=== PATIENT | male | born 1955 | race Caucasian/White ===

== ENCOUNTER 2017-03-31 07:58 | Observation (INO) ==
[2017-03-31] MEDS ORDERED: *HR* HYDROmorphone (PF) 1 MG/ML SYRINGE IVP ONE ×3 (08:11→09:20)
[2017-03-31] MEDS ORDERED: Ondansetron 4 MG/2 ML VIAL IVP ONE ×2 (08:11→08:50)
[2017-03-31] MEDS ORDERED: 0.9 % Sodium Chloride 1,000 ML IVC ONE ×2 (08:14→08:42)
--- NOTE | 2017-03-31 08:18 | Emergency Department Note ---
Disposition Clinical Impression: Abdominal pain, Lactic acidosis Disposition: Admitted As Inpatient Condition: Good General Adult HPI - General Chief complaint: ED Abdominal Pain Stated complaint: ABD PAIN Time Seen by Provider: 03/31/17 08:05 Source: patient, family Limitations: no limitations Nursing Notes Reviewed: Yes Vital Signs Reviewed: Yes - History of Present Illness Pain Scale: 9 - Related Data Home Medications Medication Instructions Recorded Confirmed Multivit-Min/FA/Lycopen/Lutein 1 tab PO DAILY 03/31/17 03/31/17 [Centrum Silver Men Tablet] Allergies Allergy/AdvReac Type Severity Reaction Status Date / Time No Known Allergies Allergy Verified 03/31/17 08:06 Past Medical History - Past Medical History Medical history: Reports: no medical history Psychiatric history: Reports: no psych history - Social History Smoking Status: Never smoker Smokeless Tobacco Status: No Drug use: Reports: none Physical Exam - General Limitations: no limitations General appearance: alert, other Course Vital Signs Temperature 97.5 F L 03/31/17 08:00 Pulse Rate 85 03/31/17 08:00 Respiratory Rate 20 03/31/17 08:00 Blood Pressure 0/0 03/31/17 08:00 O2 Sat by Pulse Oximetry 95 03/31/17 08:00 Temperature 98.1 F 03/31/17 14:59 Pulse Rate 68 03/31/17 14:59 Respiratory Rate 14 03/31/17 14:59 Blood Pressure 135/85 03/31/17 14:59 O2 Sat by Pulse Oximetry 94 03/31/17 14:59 Oxygen Delivery Oxygen Delivery Nasal Cannula Medical Decision Making - [facility] Narrative Medical decision making narrative: I examined this patient and my medical decision-making was reviewed with the Resident Physician. I agree with the documented findings, disposition and treatment plan as described except to the extent set forth below. Patient seen and evaluated by Dr. Ayala and myself, I agree with his evaluation and management plan, supervise care the patient's stay. Patient's had abdominal pain this been going on for about 2 hours some vomiting and diarrhea. He points to epigastric region but also right lower quadrant appears to be somewhat jaundiced. No chronic medical problems with his abdomen in the past. We will see if we can make him more comfortable check lab work and scan his abdomen with CT. He is in agreement with this plan. No testicular tenderness. Abdomen/Pelvis CT 03/31/17 08:15 IMPRESSION: 1. Mild infiltration of the mesentery with small nodes. 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 Treated adenopathy could appear similar. 2. Otherwise no acute findings within the abdomen or pelvis. Colonic diverticulosis with no acute features. No CT evidence of appendicitis or obstructive uropathy. D/ / Angel Cuellar MD / Angel Cuellar MD Interpreting Provider: Angel Cuellar MD 0900 hrs.: Patient's lactate is elevated, repeat at 4 hours after giving fluids here. His vital signs are stable compared to the first set. We spoke with surgery and Dr. El is coming down to see the patient. 9:30 hours: Dr. Strange has seen the patient in the emergency department he would like a repeat CT with IV contrast. Patient's feeling better after getting 2.4 mg of Dilaudid and nausea medication. Patient's agreement this plan. Abdomen/Pelvis CT 03/31/17 09:05 IMPRESSION: 1. No CT evidence of mesenteric ischemia. The mesenteric arterial and venous circulation are patent. No significant inflammatory changes within the small or large bowel. 2. Redemonstration of mild infiltration of the mesenteric fat with small nodes. Colonic diverticulosis with no acute features. D/ : / 03/31/2017 10:07:41 Angel Cuellar MD / [facility] Interpreting Provider: Angel Cuellar MD 1030 hrs. discussed findings with surgery. Admit to medicine, and surgery consult. Patient's agreement with plan. - Lab Data Result diagrams: 03/31/17 08:16 03/31/17 08:16 Lab Results 03/31/17 03/31/17 03/31/17 Range/Units 08:16 08:16 08:16 WBC 9.3 (4.3-11.1) K/mcL RBC 5.52 H (4.19-5.50) M/mcL Hgb 16.1 (12.9-16.9) g/dL Hct 46.4 (37.5-50.1) % MCV 84.1 (83.0-100.0) fL MCH 29.2 (28.0-33.3) pg MCHC 34.7 (31.6-35.5) g/dL RDW 12.4 (11.5-14.5) % Plt Count 175 (140-400) K/mcL MPV 9.0 L (9.4-12.4) fL Immature Gran % 0.5 (0-4) % Seg Neutrophils % 76.3 % Lymphocytes % 17.0 % Monocytes % 4.3 % Eosinophils % 1.6 % Basophils % 0.3 % Neutrophils # 7.1 (1.6-8.9) K/mcL Lymphocytes # 1.6 (0.6-4.6) K/mcL Monocytes # 0.4 (0.0-1.3) K/mcL Eosinophils # 0.2 (0.0-0.6) K/mcL Basophils # 0.0 (0.0-0.2) K/mcL Sodium 142 (136-145) mEq/L Potassium 3.5 (3.5-4.5) mEq/L Chloride 105 (98-109) mEq/L Carbon Dioxide 26 (19-29) mEq/L BUN 10 (8-26) mg/dL Creatinine 1.07 (0.72-1.25) mg/dL Est GFR ( Amer) > 60 (> 60) Est GFR (Non-Af Amer) > 60 (> 60) BUN/Creatinine Ratio 9 (6-26) Glucose 132 H (70-99) mg/dL Calculated Osmolality 295 (280-300) Lactic Acid 4.0 H* (0.5-2.2) mmol/L Calcium 9.6 (8.6-10.8) mg/dL Total Bilirubin 0.4 (0.2-1.2) mg/dL Direct Bilirubin 0.2 (0.0-0.5) mg/dL Indirect Bilirubin 0.2 (0.0-1.2) mg/dL AST 36 H (5-34) Units/L ALT 60 H (0-55) Units/L Alkaline Phosphatase 90 (38-126) Units/L Troponin I (0-0.03) ng/mL Serum Total Protein 7.9 (6.0-8.3) g/dL Albumin 4.4 (3.5-5.0) g/dL Globulin 3.5 (2.4-3.5) g/dL Albumin/Globulin Ratio 1.3 (1.1-2.2) Lipase 43 (8-78) Units/L Urine Color (Yellow) Urine Clarity (Clear) Urine pH (5.0-8.0) pH Units Ur Specific [place] (1.010-1.025) Urine Protein (Neg-Trace) mg/dL Urine Glucose (UA) (Normal) mg/dL Urine Ketones (Negative) mg/dL Urine Blood (Negative) Urine Nitrite (Negative) Urine Bilirubin (Negative) Urine Urobilinogen (Normal) mg/dL Ur Leukocyte Esterase (Negative) Urine Microscopic RBC (0-3) per hpf Urine Microscopic WBC (0-3) per hpf Ur Squamous Epith Cells (None-Few) per lpf Urine Bacteria (None-Few) per hpf Hyaline Casts (None-Few) per lpf Ur Culture Indicated? (NO) Urine Opiates Screen (Nsfwmo=179) ng/mL Ur Barbiturates Screen (Sbtuwf=450) ng/mL Ur Phencyclidine Scrn (Cutoff=25) ng/mL Ur Amphetamines Screen (Mojsqc=6147) ng/mL U Benzodiazepines Scrn (Senrjg=640) ng/mL Urine Cocaine Screen (Cutoff= 300) ng/mL U Marijuana (THC) Screen (Cutoff = 50) ng/mL 03/31/17 03/31/17 03/31/17 Range/Units 08:16 08:45 08:45 WBC (4.3-11.1) K/mcL RBC (4.19-5.50) M/mcL Hgb (12.9-16.9) g/dL Hct (37.5-50.1) % MCV (83.0-100.0) fL MCH (28.0-33.3) pg MCHC (31.6-35.5) g/dL RDW (11.5-14.5) % Plt Count (140-400) K/mcL MPV (9.4-12.4) fL Immature Gran % (0-4) % Seg Neutrophils % % Lymphocytes % % Monocytes % % Eosinophils % % Basophils % % Neutrophils # (1.6-8.9) K/mcL Lymphocytes # (0.6-4.6) K/mcL Monocytes # (0.0-1.3) K/mcL Eosinophils # (0.0-0.6) K/mcL Basophils # (0.0-0.2) K/mcL Sodium (136-145) mEq/L Potassium (3.5-4.5) mEq/L Chloride (98-109) mEq/L Carbon Dioxide (19-29) mEq/L BUN (8-26) mg/dL Creatinine (0.72-1.25) mg/dL Est GFR ( Amer) (> 60) Est GFR (Non-Af Amer) (> 60) BUN/Creatinine Ratio (6-26) Glucose (70-99) mg/dL Calculated Osmolality (280-300) Lactic Acid (0.5-2.2) mmol/L Calcium (8.6-10.8) mg/dL Total Bilirubin (0.2-1.2) mg/dL Direct Bilirubin (0.0-0.5) mg/dL Indirect Bilirubin (0.0-1.2) mg/dL AST (5-34) Units/L ALT (0-55) Units/L Alkaline Phosphatase (38-126) Units/L Troponin I 0.01 (0-0.03) ng/mL Serum Total Protein (6.0-8.3) g/dL Albumin (3.5-5.0) g/dL Globulin (2.4-3.5) g/dL Albumin/Globulin Ratio (1.1-2.2) Lipase (8-78) Units/L Urine Color Yellow (Yellow) Urine Clarity Cloudy A (Clear) Urine pH 8.0 (5.0-8.0) pH Units Ur Specific [place] 1.017 (1.010-1.025) Urine Protein Negative (Neg-Trace) mg/dL Urine Glucose (UA) Normal (Normal) mg/dL Urine Ketones Negative (Negative) mg/dL Urine Blood Negative (Negative) Urine Nitrite Negative (Negative) Urine Bilirubin Negative (Negative) Urine Urobilinogen Normal (Normal) mg/dL Ur Leukocyte Esterase Negative (Negative) Urine Microscopic RBC 0-3 (0-3) per hpf Urine Microscopic WBC 0-3 (0-3) per hpf Ur Squamous Epith Cells Many H (None-Few) per lpf Urine Bacteria None Seen (None-Few) per hpf Hyaline Casts None Seen (None-Few) per lpf Ur Culture Indicated? NO (NO) Urine Opiates Screen Negative (Spyxmn=466) ng/mL Ur Barbiturates Screen Negative (Vafivz=434) ng/mL Ur Phencyclidine Scrn Negative (Cutoff=25) ng/mL Ur Amphetamines Screen Negative (Tpsfod=4207) ng/mL U Benzodiazepines Scrn Negative (Denxzf=930) ng/mL Urine Cocaine Screen Negative (Cutoff= 300) ng/mL U Marijuana (THC) Screen Positive H (Cutoff = 50) ng/mL
[2017-03-31 08:26] LABS: Basophils % 0.3 %; Eosinophils # 0.2 K/mcL (0.0-0.6); Eosinophils % 1.6 %; Hematocrit 46.4 % (37.5-50.1); Hemoglobin 16.1 g/dL (12.9-16.9); Immature Granulocytes % 0.5 % (0-4); Lymphocytes # 1.6 K/mcL (0.6-4.6); Mean Corpuscular HGB Conc 34.7 g/dL (31.6-35.5); Mean Corpuscular Hemoglobin 29.2 pg (28.0-33.3); Mean Corpuscular Volume 84.1 fL (83.0-100.0); Monocytes # 0.4 K/mcL (0.0-1.3); Monocytes % 4.3 %; Neutrophils # 7.1 K/mcL (1.6-8.9); Platelet Count 175 K/mcL (140-400); Red Blood Count 5.52 M/mcL (4.19-5.50); Red Cell Distribution Width 12.4 % (11.5-14.5); Segmented Neutrophils % 76.3 %
[2017-03-31 08:41] LABS: Alanine Aminotransferase 60 Units/L (0-55); Albumin 4.4 g/dL (3.5-5.0); Albumin/Globulin Ratio 1.3 (1.1-2.2); Alkaline Phosphatase 90 Units/L (38-126); Aspartate Amino Transferase 36 Units/L (5-34); BUN/Creatinine Ratio 9 (6-26); Bilirubin,Direct 0.2 mg/dL (0.0-0.5); Bilirubin,Indirect 0.2 mg/dL (0.0-1.2); Bilirubin,Total 0.4 mg/dL (0.2-1.2); Blood Urea Nitrogen 10 mg/dL (8-26); Calcium 9.6 mg/dL (8.6-10.8); Carbon Dioxide 26 mEq/L (19-29); Chloride 105 mEq/L (98-109); Globulin 3.5 g/dL (2.4-3.5); Glucose 132 mg/dL (70-99); Lipase 43 Units/L (8-78); Osmolality,Calculated 295 (280-300); Potassium 3.5 mEq/L (3.5-4.5); Sodium 142 mEq/L (136-145); Total Protein 7.9 g/dL (6.0-8.3); eGFR For African Americans > 60 (> 60); eGFR For Non-African Americans > 60 (> 60)
[2017-03-31 08:54] LABS: Bilirubin,Urine Negative (Negative); Blood,Urine Negative (Negative); Clarity,Urine Cloudy (Clear); Color,Urine Yellow (Yellow); Glucose,Urine (UA) Normal (Normal); Ketones,Urine Negative (Negative); Leukocyte Esterase,Urine Negative (Negative); Nitrite,Urine Negative (Negative); Protein,Urine Negative (Neg-Trace); Specific Gravity,Urine 1.017 (1.010-1.025); Urobilinogen,Urine Normal (Normal)
[2017-03-31 08:56] LABS: Bacteria,Urine None Seen per hpf (None-Few); Hyaline Casts,Urine None Seen per lpf (None-Few); RBC,Urine 0-3 per hpf (0-3); Squamous Epithelial Cell,Urine Many per lpf (None-Few); WBC,Urine 0-3 per hpf (0-3)
[2017-03-31 08:59] LABS: Amphetamine Screen,Urine Negative ng/mL (Cutoff=1000); Barbiturate Screen,Urine Negative ng/mL (Cutoff=200); Benzodiazepines Screen,Urine Negative ng/mL (Cutoff=200); Cannabinoid Screen,Urine Positive ng/mL (Cutoff = 50); Cocaine Screen,Urine Negative ng/mL (Cutoff= 300); Opiate Screen,Urine Negative ng/mL (Cutoff=300); Phencyclidine Screen,Urine Negative ng/mL (Cutoff=25)
--- NOTE | 2017-03-31 09:08 | Emergency Department Note ---
Disposition Clinical Impression: Abdominal pain, Lactic acidosis Disposition: Admitted As Inpatient Condition: Good Referrals: NONE,PCP [Primary Care Provider] - Forms: ED Satisfaction Letter, Work/School Release Time of Disposition: 10:33 Abdominal Pain HPI - General Chief Complaint: ED Abdominal Pain Stated Complaint: ABD PAIN Time Seen by Provider: 03/31/17 08:05 Source: patient, family Mode of arrival: ambulatory Limitations: no limitations Nursing Notes Reviewed: Yes Vital Signs Reviewed: Yes - History of Present Illness HPI Narrative: Patient presents to the ED with the chief complaint of abdominal pain. reports he was awoken from sleep 2 hours prior to arrival with severe abdominal pain. Located periumbilically unable to describe the character but states it hurts all over. Had one episode of watery diarrhea and as well as vomiting. Patient is diaphoretic and most of the history is given by his . States his last meal was at 10 PM yesterday. Has no known medical problems, takes no medication daily. No known fever, rash, chest pain or shortness of breath. Pain Scale: 10 - Related Data Home Medications Medication Instructions Recorded Confirmed Multivit-Min/FA/Lycopen/Lutein 1 tab PO DAILY 03/31/17 03/31/17 [Centrum Silver Men Tablet] Allergies Allergy/AdvReac Type Severity Reaction Status Date / Time No Known Allergies Allergy Verified 03/31/17 08:06 All systems ED: reviewed and negative except as stated. Constitutional: Denies: fever Cardiovascular: Denies: chest pain Respiratory: Denies: dyspnea Gastrointestinal: Reports: abdominal pain, nausea, vomiting, diarrhea. Denies: hematemesis, melena, hematochezia Genitourinary: Denies: dysuria Abdominal Pain PMH - Past Medical History Medical history: Reports: no medical history Male Surgical History: Reports: no surgical history Psychiatric history: Reports: no psych history - Social History Smoking status: Never smoker Drug use: Reports: none Physical Exam - General Limitations: no limitations General appearance: alert, in distress, other - Respiratory Respiratory exam: Present: normal lung sounds bilaterally - Cardiovascular Cardiovascular exam: Present: regular rate, normal rhythm, normal heart sounds - Abdominal Exam Abdominal exam: Present: soft, tenderness, other (pain out of proportion to exam ). Absent: distention Abdominal tenderness: Present: diffuse, mild - Extremities Exam Extremities exam: Present: normal inspection, full ROM. Absent: tenderness, pedal edema - Neurological Exam Neurological exam: Present: alert, oriented X3 - Psychiatric Psychiatric exam: Present: anxious - Skin Skin exam: Present: warm, intact, diaphoresis Course Course Narrative: Patient presenting with acute onset of abdominal pain, and diaphoretic, seemed to have pain out of proportion to exam. Could be nephrolithiasis, although no previous history. We will send down for a noncontrasted CT while labs are pending. Likely surgical consult and admission. - Reevaluation(s) Reevaluation #1: Patient feeling better. Repeat CT did not show any concern over mesenteric ischemia. Patient will be admitted to the hospitalist service with surgical consult. Time: 10:32 - Consultations Consultation #1: Spoke with the on-call surgeon, Dr. El. States he will be down to evaluate the patient but did recommend repeating his abdominal CT scan with IV contrast to further evaluate his vasculature. Lactate is elevated at 4. We will repeat after fluid resuscitation and pain medication. Patient is still quite uncomfortable. Time: 09:06 Vital Signs Temperature 97.5 F L 03/31/17 08:00 Pulse Rate 85 03/31/17 08:00 Respiratory Rate 20 03/31/17 08:00 Blood Pressure 0/0 03/31/17 08:00 O2 Sat by Pulse Oximetry 95 03/31/17 08:00 Temperature 97.8 F 03/31/17 09:30 Pulse Rate 62 03/31/17 09:30 Respiratory Rate 16 03/31/17 09:30 Blood Pressure 151/94 03/31/17 09:30 O2 Sat by Pulse Oximetry 98 03/31/17 09:30 Oxygen Delivery Oxygen Delivery Room Air Abdominal Pain - Medical Records Medical records reviewed: Yes I reviewed the patient's medical records. - Lab Data Lab results reviewed: Yes I reviewed the patient's lab results. Result diagrams: 03/31/17 08:16 03/31/17 08:16 Lab Results 03/31/17 03/31/17 03/31/17 Range/Units 08:16 08:16 08:16 WBC 9.3 (4.3-11.1) K/mcL RBC 5.52 H (4.19-5.50) M/mcL Hgb 16.1 (12.9-16.9) g/dL Hct 46.4 (37.5-50.1) % MCV 84.1 (83.0-100.0) fL MCH 29.2 (28.0-33.3) pg MCHC 34.7 (31.6-35.5) g/dL RDW 12.4 (11.5-14.5) % Plt Count 175 (140-400) K/mcL MPV 9.0 L (9.4-12.4) fL Immature Gran % 0.5 (0-4) % Seg Neutrophils % 76.3 % Lymphocytes % 17.0 % Monocytes % 4.3 % Eosinophils % 1.6 % Basophils % 0.3 % Neutrophils # 7.1 (1.6-8.9) K/mcL Lymphocytes # 1.6 (0.6-4.6) K/mcL Monocytes # 0.4 (0.0-1.3) K/mcL Eosinophils # 0.2 (0.0-0.6) K/mcL Basophils # 0.0 (0.0-0.2) K/mcL Sodium 142 (136-145) mEq/L Potassium 3.5 (3.5-4.5) mEq/L Chloride 105 (98-109) mEq/L Carbon Dioxide 26 (19-29) mEq/L BUN 10 (8-26) mg/dL Creatinine 1.07 (0.72-1.25) mg/dL Est GFR ( Amer) > 60 (> 60) Est GFR (Non-Af Amer) > 60 (> 60) BUN/Creatinine Ratio 9 (6-26) Glucose 132 H (70-99) mg/dL Calculated Osmolality 295 (280-300) Lactic Acid 4.0 H* (0.5-2.2) mmol/L Calcium 9.6 (8.6-10.8) mg/dL Total Bilirubin 0.4 (0.2-1.2) mg/dL Direct Bilirubin 0.2 (0.0-0.5) mg/dL Indirect Bilirubin 0.2 (0.0-1.2) mg/dL AST 36 H (5-34) Units/L ALT 60 H (0-55) Units/L Alkaline Phosphatase 90 (38-126) Units/L Troponin I (0-0.03) ng/mL Serum Total Protein 7.9 (6.0-8.3) g/dL Albumin 4.4 (3.5-5.0) g/dL Globulin 3.5 (2.4-3.5) g/dL Albumin/Globulin Ratio 1.3 (1.1-2.2) Lipase 43 (8-78) Units/L Urine Color (Yellow) Urine Clarity (Clear) Urine pH (5.0-8.0) pH Units Ur Specific [place] (1.010-1.025) Urine Protein (Neg-Trace) mg/dL Urine Glucose (UA) (Normal) mg/dL Urine Ketones (Negative) mg/dL Urine Blood (Negative) Urine Nitrite (Negative) Urine Bilirubin (Negative) Urine Urobilinogen (Normal) mg/dL Ur Leukocyte Esterase (Negative) Urine Microscopic RBC (0-3) per hpf Urine Microscopic WBC (0-3) per hpf Ur Squamous Epith Cells (None-Few) per lpf Urine Bacteria (None-Few) per hpf Hyaline Casts (None-Few) per lpf Ur Culture Indicated? (NO) Urine Opiates Screen (Owkawh=177) ng/mL Ur Barbiturates Screen (Ryggqa=206) ng/mL Ur Phencyclidine Scrn (Cutoff=25) ng/mL Ur Amphetamines Screen (Hnysdj=3265) ng/mL U Benzodiazepines Scrn (Wiocdu=651) ng/mL Urine Cocaine Screen (Cutoff= 300) ng/mL U Marijuana (THC) Screen (Cutoff = 50) ng/mL 03/31/17 03/31/17 03/31/17 Range/Units 08:16 08:45 08:45 WBC (4.3-11.1) K/mcL RBC (4.19-5.50) M/mcL Hgb (12.9-16.9) g/dL Hct (37.5-50.1) % MCV (83.0-100.0) fL MCH (28.0-33.3) pg MCHC (31.6-35.5) g/dL RDW (11.5-14.5) % Plt Count (140-400) K/mcL MPV (9.4-12.4) fL Immature Gran % (0-4) % Seg Neutrophils % % Lymphocytes % % Monocytes % % Eosinophils % % Basophils % % Neutrophils # (1.6-8.9) K/mcL Lymphocytes # (0.6-4.6) K/mcL Monocytes # (0.0-1.3) K/mcL Eosinophils # (0.0-0.6) K/mcL Basophils # (0.0-0.2) K/mcL Sodium (136-145) mEq/L Potassium (3.5-4.5) mEq/L Chloride (98-109) mEq/L Carbon Dioxide (19-29) mEq/L BUN (8-26) mg/dL Creatinine (0.72-1.25) mg/dL Est GFR ( Amer) (> 60) Est GFR (Non-Af Amer) (> 60) BUN/Creatinine Ratio (6-26) Glucose (70-99) mg/dL Calculated Osmolality (280-300) Lactic Acid (0.5-2.2) mmol/L Calcium (8.6-10.8) mg/dL Total Bilirubin (0.2-1.2) mg/dL Direct Bilirubin (0.0-0.5) mg/dL Indirect Bilirubin (0.0-1.2) mg/dL AST (5-34) Units/L ALT (0-55) Units/L Alkaline Phosphatase (38-126) Units/L Troponin I 0.01 (0-0.03) ng/mL Serum Total Protein (6.0-8.3) g/dL Albumin (3.5-5.0) g/dL Globulin (2.4-3.5) g/dL Albumin/Globulin Ratio (1.1-2.2) Lipase (8-78) Units/L Urine Color Yellow (Yellow) Urine Clarity Cloudy A (Clear) Urine pH 8.0 (5.0-8.0) pH Units Ur Specific [place] 1.017 (1.010-1.025) Urine Protein Negative (Neg-Trace) mg/dL Urine Glucose (UA) Normal (Normal) mg/dL Urine Ketones Negative (Negative) mg/dL Urine Blood Negative (Negative) Urine Nitrite Negative (Negative) Urine Bilirubin Negative (Negative) Urine Urobilinogen Normal (Normal) mg/dL Ur Leukocyte Esterase Negative (Negative) Urine Microscopic RBC 0-3 (0-3) per hpf Urine Microscopic WBC 0-3 (0-3) per hpf Ur Squamous Epith Cells Many H (None-Few) per lpf Urine Bacteria None Seen (None-Few) per hpf Hyaline Casts None Seen (None-Few) per lpf Ur Culture Indicated? NO (NO) Urine Opiates Screen Negative (Jwzikl=453) ng/mL Ur Barbiturates Screen Negative (Svkqmh=321) ng/mL Ur Phencyclidine Scrn Negative (Cutoff=25) ng/mL Ur Amphetamines Screen Negative (Sttwki=2289) ng/mL U Benzodiazepines Scrn Negative (Tfrssr=251) ng/mL Urine Cocaine Screen Negative (Cutoff= 300) ng/mL U Marijuana (THC) Screen Positive H (Cutoff = 50) ng/mL - Radiology Data Radiology results reviewed: Yes I reviewed the patient's radiology results. Abdomen/Pelvis CT 03/31/17 08:15 IMPRESSION: 1. Mild infiltration of the mesentery with small nodes. 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 Treated adenopathy could appear similar. 2. Otherwise no acute findings within the abdomen or pelvis. Colonic diverticulosis with no acute features. No CT evidence of appendicitis or obstructive uropathy. D/ / 03/31/2017 09:13:38 Angel Cuellar MD / [facility] Interpreting Provider: Angel Cuellar MD - EKG Data EKG attestation: Yes I reviewed and interpreted this EKG. EKG results narrative: Sinus rhythm with sinus arrhythmia, rate 65, AR interval 186, QRS 93, QTc 423, normal axis, no acute ischemic changes.
[2017-03-31] MEDS ORDERED: *HR* Promethazine 25 MG/ML VIAL IVP ONE (09:25)
[2017-03-31] MEDS ORDERED: Naloxone 0.4 MG/ML INJ IVP PRN (10:59)
--- NOTE | 2017-03-31 11:09 | General Surgery Consult Note ---
Date of Encounter: 03/31/17 Time of Encounter: 11:00 Assessment and Plan (1) Abdominal pain Current Visit: Yes Status: Acute The patient's abdominal pain initially was 10 out of 10 and is now 0 out of 10 he has mild abnormality on CAT scan and a mild lactic acidosis. White blood cell count is normal. Since the pain is completely gone at this point I think it is reasonable to observe him over time clinically. We will follow along closely. Qualifiers: Abdominal location: generalized Qualified Code(s): R10.84 - Generalized abdominal pain History of Present Illness Consult date: 03/31/17 Reason for consult: abdominal pain History of present illness: The patient presented today with severe 10 out of 10 abdominal pain. He stated the pain was below the umbilicus and central in the abdomen. She had nausea and vomiting. He presented to the emergency room and underwent evaluation by CAT scan. CAT scan demonstrated mild stranding in the mesentery. 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 A repeat CAT scan was performed with IV contrast. It appears as though the segment of mesentery in question is with well vascularized. The patient received several doses of narcotic. I reexamined the patient and his pain was 0. There were no other indications to proceed with surgery. He has never had an episode like this. He is admitted to the hospitalist service. We will follow along closely. Past Med Surg Social Fam HX - Past Medical History Medical history: no medical history Psychiatric history: no psych history - Social History Smoking Status: Never smoker Smokeless Tobacco Status: No Drug use: none Medications and Allergies Multivit-Min/FA/Lycopen/Lutein [Centrum Silver Men Tablet] 1 tab PO DAILY [History] 3 Allergy/AdvReac Type Severity Reaction Status Date / Time No Known Allergies Allergy Verified 03/31/17 08:06 Review of Systems All systems PM: A 10-system review of systems was performed and is negative for pertinent findings except as documented above in the HPI. General Surgery Exam Initial Vital Signs Temp Pulse Resp BP Pulse Ox 97.5 F L 85 20 0/0 95 03/31/17 08:00 03/31/17 08:00 03/31/17 08:00 03/31/17 08:00 03/31/17 08:00 - General physical appearance well developed, well nourished, no distress - Neck no masses, no bruits, trachea midline, no lymphadectomy, no venous distension - Respiratory normal expansion, normal respiratory effort, clear to percussion, clear to auscultation - Cardiovascular Cardiovascular exam: Present: RRR, 15, 16 - Abdomen Abdomen general surgery: Present: bowel sounds present, soft, non tender - Neurologic Present: CN 2-12 grossly intact, normal coordination, normal sensation - Psychiatric Psychiatric general surgery: Present: appropriate, oriented to person, oriented to place, oriented to time, speech is normal, memory intact Exam Initial Vital Signs Temp Pulse Resp BP Pulse Ox 97.5 F L 85 20 0/0 95 03/31/17 08:00 03/31/17 08:00 03/31/17 08:00 03/31/17 08:00 03/31/17 08:00 Results - Labs 03/31/17 08:16 03/31/17 08:16 Abnormal lab results RBC 5.52 M/mcL (4.19-5.50) H 03/31/17 08:16 MPV 9.0 fL (9.4-12.4) L 03/31/17 08:16 Glucose 132 mg/dL (70-99) H 03/31/17 08:16 Lactic Acid 4.0 mmol/L (0.5-2.2) H* 03/31/17 08:16 AST 36 Units/L (5-34) H 03/31/17 08:16 ALT 60 Units/L (0-55) H 03/31/17 08:16 Urine Clarity Cloudy (Clear) A 03/31/17 08:45 Ur Squamous Epith Cells Many per lpf (None-Few) H 03/31/17 08:45 U Marijuana (THC) Screen Positive ng/mL (Cutoff = 50) H 03/31/17 08:45 All other labs normal. - Imaging CT scan - abdomen: image reviewed (I personally reviewed both CAT scan images. The mesentery in the left upper quadrant as prominent as is the vasculature. There is also some stranding.) Consult Discharge Plan - Plan Referrals: NONE,PCP [Primary Care Provider] -
--- NOTE | 2017-03-31 11:36 | Internal Med History&Physical ---
Date of Encounter: 03/31/17 Time of Encounter: 11:33 Assessment and Plan (1) Abdominal pain Current visit: Yes Status: Acute Patient had a sudden onset of 10 out of 10 abdominal pain. He denies any past surgical interventions trauma sick contacts. He did have nausea vomiting and diarrhea no melena or hematochezia or hematemesis. CT of abdomen with no evidence of mesenteric ischemia. Surgery did see the patient - no surgical intervention at this time We will obtain stool for occult blood and a GI panel Continue with Dilaudid and Zofran for pain/ nausea Nothing by mouth for now IV fluids Protonix IV Qualifiers: Abdominal location: generalized Qualified Code(s): R10.84 - Generalized abdominal pain (2) Lactic acidosis Current visit: No Status: Acute Presenting lactate was 4 suspect this is related to pain-CT of abdomen did not show any ischemia. We will give IV fluids and pain medication. Recheck lactate (3) DVT prophylaxis Current visit: No Status: Acute 1 Lovenox subcutaneous Internal Medicine - H&P: HPI Chief complaint: Abd pain Admitted From: Emergency Dept Plans for Post Hospital Care: Home History of present illness: Mr. Aguirre is a 61 year old male no past medical history no past surgical history. According to the patient he was awakened approximately 5 AM this morning with abdominal pain which he described as cramping occurring below umbilicus radiating across his lower abdomen. The pain continued to escalate 10 /10 stabbing pain he began to experience nausea and vomiting and diarrhea. He was diaphoretic. There were no aggravating or relieving factors. He presented to the ER lab work was completed which was unremarkable however his lactate was elevated at 4. CT of abdomen was obtained suggestive of possible mesenteric panniculitis CT with IV contrast obtained no evidence of mesenteric ischemia. Surgery was consulted Dr. El did see the patient and advised no surgical intervention at this time. Presently his pain is controlled. And he is hemodynamically stable at this time. I reviewed this case with Dr. Almonte agrees with plan Past Med Surg Social Fam HX - Past Medical History Medical history: no medical history Psychiatric history: no psych history - Social History Smoking Status: Never smoker Smokeless Tobacco Status: No Drug use: none - Family History Mother Living Status: Still Living Hx Family Cancer: Yes (Lung cancer) Father Living Status: Cause of : Colon cancer liver cancer Internal Medicine - H&P: Meds Multivit-Min/FA/Lycopen/Lutein [Centrum Silver Men Tablet] 1 tab PO DAILY [History] 3 Allergy/AdvReac Type Severity Reaction Status Date / Time No Known Allergies Allergy Verified 03/31/17 08:06 All Systems PM: A 10-system review of systems was performed and is negative for pertinent findings except as documented above in the HPI. - Constitutional Constitutional: no chills, no fever(s), no night sweats - EENT Eyes: no change in vision, no discharge, no pain, no photophobia Nose, mouth and throat: no dysphagia, no nasal discharge, no neck pain, no sore throat - Cardiovascular Cardiovascular ROS IM: no chest pain, no diaphoresis, no dyspnea, no lightheadedness, no palpitations, no syncope - Respiratory Respiratory: no cough, no dyspnea, no wheezing, no excessive phlegm production - Gastrointestinal Gastrointestinal: abdominal pain, nausea, vomiting, no diarrhea, no hematemesis , no hematochezia, no melena - Musculoskeletal Musculoskeletal ROS IM: no numbness, no tingling - Integumentary Integumentary IM: no rash, no unusual bruising - Neurological Neurological ROS: no confusion, no convulsions, no focal weakness, no numbness, no tingling, no tremor(s) - Hematologic/Lymphatic Hematologic/Lymphatic: no easy bruising - Constitutional Vitals: Temp Pulse Resp BP Pulse Ox 97.8 F 67 16 116/79 98 03/31/17 09:30 03/31/17 10:30 03/31/17 10:30 03/31/17 10:30 03/31/17 10:30 General appearance: Present: A&O X 3 - Head Head exam: Present: atraumatic, normocephalic - Eye Eye exam: Present: PERRL, conjuntiva pink, sclera anicteric Pupils: Present: PERRL - Neck Neck exam general surgery: Present: supple, trachea midline. Absent: lymphadenopathy - Respiratory Respiratory exam: Present: CTAB. Absent: accessory muscle use, rales, rhonchi, wheezes - Cardiovascular Cardiovascular exam: Present: RRR, +S1, +S2. Absent: diastolic murmur, gallop, rubs, systolic murmur - GI/Abdominal GI/Abdominal exam: Present: normal bowel sounds, soft, no peritoneal signs. Absent: distended, tenderness - Extremities Exam Extremities exam: Present: warm, radial pulses palpable and symmetrical. Absent : calf tenderness, cyanotic, pedal edema - Neurological Exam Neurological exam: Present: CN II-XII intact, oriented X3, no focal deficits. Absent: pronater drift, facial droop, speech deficit - Skin Skin exam: Present: dry, intact Internal Med - H&P Results - Labs CBC & Chem 7: 03/31/17 08:16 03/31/17 08:16 - EKG Data EKG shows normal: sinus rhythm - Diagnostic Studies Other Images Additional comments: Abdomen/Pelvis CT 03/31/17 09:05 IMPRESSION: 1. No CT evidence of mesenteric ischemia. The mesenteric arterial and venous circulation are patent. No significant inflammatory changes within the small or large bowel. 2. Redemonstration of mild infiltration of the mesenteric fat with small nodes. Colonic diverticulosis with no acute features. D/ : / 03/31/2017 10:07:41 Angel Cuellar [facility] / [facility] Interpreting Provider: Angel Cuellar MD
[2017-03-31] MEDS: 0.9 % Sodium Chloride 1,000 ML IVC SCH ×2 (13:10→22:17)
[2017-03-31] MEDS: Ondansetron 4 MG/2 ML VIAL IVP PRN ×2 (13:55→22:21)
[2017-03-31] MEDS: *HR* HYDROmorphone (PF) 1 MG/ML SYRINGE IVP PRN ×3 (13:55→22:23)
--- NOTE | 2017-04-01 01:19 | Event Note ---
Date of Encounter: 04/01/17 Time of Encounter: 01:18 Patient seen and examined with nurse practitioner. Mesenteric panniculitis. Will hydrate and control pain. If no improvement will consider steroids. Thisencounter occured on 03/31/2017
[2017-04-01] MEDS: *HR* Enoxaparin 30 MG/0.3 ML SYRINGE SQ SCH (05:18)
[2017-04-01 05:51] LABS: Basophils % 0.2 %; Eosinophils # 0.1 K/mcL (0.0-0.6); Eosinophils % 1.2 %; Hematocrit 39.7 % (37.5-50.1); Immature Granulocytes % 0.3 % (0-4); Lymphocytes # 1.5 K/mcL (0.6-4.6); Lymphocytes % 15.5 %; Mean Corpuscular HGB Conc 33.8 g/dL (31.6-35.5); Mean Corpuscular Hemoglobin 28.9 pg (28.0-33.3); Mean Corpuscular Volume 85.7 fL (83.0-100.0); Mean Platelet Volume 9.2 fL (9.4-12.4); Monocytes # 0.7 K/mcL (0.0-1.3); Monocytes % 6.8 %; Neutrophils # 7.3 K/mcL (1.6-8.9); Platelet Count 134 K/mcL (140-400); Red Blood Count 4.63 M/mcL (4.19-5.50); Red Cell Distribution Width 12.7 % (11.5-14.5)
[2017-04-01 05:57] LABS: BUN/Creatinine Ratio 9 (6-26); Blood Urea Nitrogen 7 mg/dL (8-26); Calcium 8.2 mg/dL (8.6-10.8); Carbon Dioxide 24 mEq/L (19-29); Chloride 109 mEq/L (98-109); Glucose 94 mg/dL (70-99); Osmolality,Calculated 288 (280-300); Potassium 3.6 mEq/L (3.5-4.5); Sodium 140 mEq/L (136-145); eGFR For African Americans > 60 (> 60); eGFR For Non-African Americans > 60 (> 60)
[2017-04-01 06:12] LABS: Hemoglobin 13.4 g/dL (12.9-16.9)
[2017-04-01 07:24] LABS: C-Reactive Protein 13 mg/L (Less than 5)
[2017-04-01] MEDS: 0.9 % Sodium Chloride 1,000 ML IVC SCH ×2 (08:10→21:48)
[2017-04-01] MEDS: Pantoprazole 40 MG VIAL IVP SCH (08:10)
[2017-04-01] MEDS: *HR* HYDROmorphone (PF) 1 MG/ML SYRINGE IVP PRN ×2 (08:11→14:39)
[2017-04-01] MEDS: Ondansetron 4 MG/2 ML VIAL IVP PRN (08:11)
--- NOTE | 2017-04-01 10:51 | General Surgery Progress Note ---
Date of Encounter: 04/01/17 Time of Encounter: 10:00 - Assessment and Plan (1) Abdominal pain Current Visit: No Status: Inactive The patient's abdominal pain initially was 10 out of 10 and is now 0 out of 10 he has mild abnormality on CAT scan and a mild lactic acidosis. White blood cell count is normal. Since the pain is completely gone at this point I think it is reasonable to observe him over time clinically. We will follow along closely. 04/01/2017. The patient is completely pain free today he has no nausea or vomiting. He has had previous episodes that have resolved spontaneously. I think there is a possibility of intermittent midgut volvulus and I would like to order small bowel follow-through. Qualifiers: Abdominal location: generalized Qualified Code(s): R10.84 - Generalized abdominal pain Subjective Narrative: The patient has absolutely no pain today. He states that he does report intermittent colicky mid abdominal pain sometimes after meals sometimes related to vomiting that immediately resolves. There is a possibility the patient has intermittent midgut volvulus. I would like to get a small bowel follow-through to further study the anatomy of the proximal small bowel to see if intermittent obstruction is indeed present. I will order a small bowel follow-through today. Objective Vital Signs - Last 8 Hours Temp Pulse Resp BP Pulse Ox 04/01/17 08:30 98.2 F 64 16 123/70 94 04/01/17 03:22 98.9 F 60 12 141/79 97 Intake and Output 03/31/17 04/01/17 04/01/17 23:59 07:59 15:59 Intake Total 1000 / 1000 1000 / 1000 Balance 1000 / 1000 1000 / 1000 Intake: IV Fluids 1000 / 1000 1000 / 1000 0.9 % Sodium Chloride 1,000 ML 1000 / 1000 1000 / 1000 @ 100 mls/hr IVC .Q10H RUDOLPH Rx#: [id number] Other: Weight 91.354 kg Blood Glucose* 107 Patient Weight 04/01/17 23:59 Weight 91.354 kg - General physical appearance well developed, well nourished, no pain - Respiratory normal expansion, normal respiratory effort, clear to percussion, clear to auscultation - Cardiovascular Cardiovascular exam: Present: RRR, no murmurs/rubs/gallops - Abdomen Abdomen: Present: bowel sounds present, soft, non tender - Integumentary no rash, no growths, no abnormal pigmentation - Neurologic normal coordination, normal sensation - Psychiatric oriented to time, oriented to person, oriented to place, speech is normal, memory intact - Labs 04/01/17 05:22 04/01/17 05:22 Diabetes panel 04/01/17 Range/Units 05:22 Sodium 140 (136-145) mEq/L Potassium 3.6 (3.5-4.5) mEq/L Chloride 109 (98-109) mEq/L Carbon Dioxide 24 (19-29) mEq/L BUN 7 L (8-26) mg/dL Creatinine 0.79 (0.72-1.25) mg/dL Glucose 94 (70-99) mg/dL Calcium 8.2 L (8.6-10.8) mg/dL Calcium panel 04/01/17 Range/Units 05:22 Calcium 8.2 L (8.6-10.8) mg/dL Pituitary panel 04/01/17 Range/Units 05:22 Sodium 140 (136-145) mEq/L Potassium 3.6 (3.5-4.5) mEq/L Chloride 109 (98-109) mEq/L Carbon Dioxide 24 (19-29) mEq/L BUN 7 L (8-26) mg/dL Creatinine 0.79 (0.72-1.25) mg/dL Glucose 94 (70-99) mg/dL Calcium 8.2 L (8.6-10.8) mg/dL Adrenal panel 04/01/17 Range/Units 05:22 Sodium 140 (136-145) mEq/L Potassium 3.6 (3.5-4.5) mEq/L Chloride 109 (98-109) mEq/L Carbon Dioxide 24 (19-29) mEq/L BUN 7 L (8-26) mg/dL Creatinine 0.79 (0.72-1.25) mg/dL Glucose 94 (70-99) mg/dL Calcium 8.2 L (8.6-10.8) mg/dL Consult Discharge Plan - Plan Referrals: NONE,PCP [Primary Care Provider] -
--- NOTE | 2017-04-01 19:03 | Internal Med Progress Note ---
Date of Encounter: 04/01/17 Time of Encounter: 08:00 - Assessment and plan (1) Abdominal pain Current Visit: Yes Status: Acute Assessment and plan: Seems to be somewhat better. Surgery input appreciated. Awaiting further testing. Qualifiers: Abdominal location: left lower quadrant Qualified Code(s): R10.32 - Left lower quadrant pain - Subjective Interval history: Mr. Aguirre is currently in observation for abdominal pain. Mr Aguirre is doing somewhat better. No pain at this time. No fever or chills. - Constitutional Vitals: Temp Pulse Resp BP Pulse Ox 98.4 F 62 12 139/81 97 04/01/17 18:48 04/01/17 18:48 04/01/17 18:48 04/01/17 18:48 04/01/17 18:48 General appearance: Present: A&O X 3, answers questions appropriately - Head Head exam: Present: normocephalic - Eye Eye exam: Present: conjuntiva pink - ENT ENT exam: Present: mucous membranes moist - Respiratory Respiratory exam: Present: CTAB. Absent: rhonchi, wheezes - Cardiovascular Cardiovascular exam: Present: RRR. Absent: tachycardia - GI/Abdominal GI/Abdominal exam: Present: normal bowel sounds, soft. Absent: tenderness - Extremities Exam Extremities exam: Present: warm. Absent: tenderness - Neurological Exam Neurological exam: Present: alert, oriented X3, no focal deficits Internal Medicine: Result - Labs CBC & Chem 7: 04/01/17 05:22 04/01/17 05:22 Labs: Short CBC 04/01/17 Range/Units 05:22 WBC 9.6 (4.3-11.1) K/mcL Hgb 13.4 D (12.9-16.9) g/dL Hct 39.7 (37.5-50.1) % Plt Count 134 L (140-400) K/mcL Neutrophils # 7.3 (1.6-8.9) K/mcL BMP 04/01/17 05:22 Sodium 140 Potassium 3.6 Chloride 109 Carbon Dioxide 24 BUN 7 L Creatinine 0.79 Glucose 94 Calcium 8.2 L Consult Discharge Plan - Plan Referrals: NONE,PCP [Primary Care Provider] -
[2017-04-01] MEDS ORDERED: Acetaminophen 325 MG TABLET PO PRN (19:15)
[2017-04-02 05:12] LABS: Hematocrit 39.1 % (37.5-50.1); Hemoglobin 13.2 g/dL (12.9-16.9); Mean Corpuscular HGB Conc 33.8 g/dL (31.6-35.5); Mean Corpuscular Hemoglobin 28.8 pg (28.0-33.3); Mean Corpuscular Volume 85.4 fL (83.0-100.0); Mean Platelet Volume 9.2 fL (9.4-12.4); Platelet Count 126 K/mcL (140-400); Red Blood Count 4.58 M/mcL (4.19-5.50); Red Cell Distribution Width 12.4 % (11.5-14.5)
[2017-04-02 05:33] LABS: BUN/Creatinine Ratio 10 (6-26); Blood Urea Nitrogen 8 mg/dL (8-26); Calcium 8.2 mg/dL (8.6-10.8); Carbon Dioxide 25 mEq/L (19-29); Chloride 108 mEq/L (98-109); Glucose 80 mg/dL (70-99); Osmolality,Calculated 291 (280-300); Potassium 3.7 mEq/L (3.5-4.5); Sodium 142 mEq/L (136-145); eGFR For African Americans > 60 (> 60); eGFR For Non-African Americans > 60 (> 60)
[2017-04-02] MEDS: *HR* Enoxaparin 30 MG/0.3 ML SYRINGE SQ SCH (06:47)
[2017-04-02 07:07] VITALS: BP 138/85
[2017-04-02] MEDS: Pantoprazole 40 MG VIAL IVP SCH (09:21)
--- NOTE | 2017-04-02 09:53 | Discharge Summary ---
Date of Encounter: 04/02/17 Time of Encounter: 09:51 - Discharge Diagnosis (1) Abdominal pain Priority: Primary Status: Resolved Qualifiers: Abdominal location: left lower quadrant Qualified Code(s): R10.32 - Left lower quadrant pain - Discharge Medications Home Medications: Multivit-Min/FA/Lycopen/Lutein [Centrum Silver Men Tablet] 1 tab PO DAILY [History] Allergies/Adverse Reactions: 3 Allergy/AdvReac Type Severity Reaction Status Date / Time No Known Allergies Allergy Verified 03/31/17 08:06 Date of admission: 03/31/17 10:45 Primary care physician: PCP NONE Consults: [place] Discharging clinician: Bakari Nicolas Anticipated date of discharge: 04/02/17 - Patient Status Disposition: Home, Self-Care Condition: Good Functional capacity at discharge: independent ambulation Overall status at discharge: patient is back to baseline - Discharge Instructions Instructions: Diverticulitis (DC) Follow Up With: NONE,PCP [Primary Care Provider] - Additional Instructions: Return for worsening symptoms. Follow up with PCP in 1-2 weeks. - Diet and Activity Activity: resume usual activities as tolerated Diet: advance to your usual diet Hospital course: Mr. Aguirre is a 61 year old male with no PMHx presented to ED with severe abdominal pain. He was evaluated and placed in observation. Mr Aguirre was placed in observation on med surg. He was NPO and he had resolution of his abdominal pain. He was seen by surgery and SBFT ordered which was negative. On 04/02 he was feeling well and at that time was afebrile with stable vitals. He was ready for discharge home. - Time Spent with Patient Total time spent providing and/or coordinating discharge services: - Constitutional Vitals: Temp Pulse Resp BP Pulse Ox 98.0 F 63 17 138/85 96 04/02/17 07:04 04/02/17 07:04 04/02/17 07:04 04/02/17 07:04 04/02/17 07:04 General appearance: Present: A&O X 3, answers questions appropriately - Head Head exam: Present: normocephalic - Eye Eye exam: Present: conjuntiva pink - ENT ENT exam: Present: mucous membranes moist - Respiratory Respiratory exam: Present: CTAB. Absent: rhonchi, wheezes - Cardiovascular Cardiovascular exam: Present: RRR. Absent: tachycardia - GI/Abdominal GI/Abdominal exam: Present: soft. Absent: tenderness - Extremities Exam Extremities exam: Present: warm. Absent: tenderness - Neurological Exam Neurological exam: Present: alert, oriented X3
--- NOTE | 2017-04-02 16:58 | Electrocardiograph Report ---
[address] [place], [place] [address] Test Date: 2017-03-31 Pat Name: Jorge Luis Aguirre Department: 103 Room: 3B64 Gender: M [employer]her: : 1955 Requested By: Eldon Ayala Order Number: [id number] Reading MD: Halina Argueta Measurements Intervals [place] Rate: 65 P: 68 SD: 196 QRS: 61 QRSD: 93 T: 65 QT: 412 QTc: 423 Interpretive Statements SINUS RHYTHM WITH SINUS ARRHYTHMIA Electronically Signed On 04-02-2017 16:56:53 EDT by Halina Argueta
== END 2017-04-02 10:15 | disposition home or self-care (01) ==
LOC: EMEROO 07:58 → 3BNU 07:58 → SUATTDRO 10:45 → 3BNU 11:00
PROVIDERS: ADMIT Hospitalist; ATTEND Internal Medicine